=== PATIENT | female | born 1955 | race American Indian/Alaskan Native ===

== ENCOUNTER 2016-05-17 07:17 | Outpatient (CLI) | payer BC ==
--- NOTE | 2016-05-17 10:29 | Cat Scan Report ---
CT abdomen and pelvis without contrast: Transverse images are obtained from the lower chest to the ischium with coronal and sagittal 2-D reformatted images. Comparison is made to a palpable study in October 2015. The patient has a fusiform infrarenal abdominal aorta extending to the bifurcation. There is some scattered mural calcifications. The maximum diameter is measured at 4.68 cm. This is within technical variation of the diameter measured on the prior exam as being the same diameter. The findings otherwise appear generally unremarkable and unchanged from the prior examination. Impression: Stable infrarenal abdominal aorta. No evidence of rupture.
== END 2016-05-17 07:18 | disposition home or self-care (01) ==
LOC: CT 07:17
PROVIDERS: ATTEND Surgery Vascular Surgery
DX: I71.9 Aortic aneurysm of unspecified site, without rupture (principal); I70.0 Atherosclerosis of aorta
CPT/HCPCS: 74176

== ENCOUNTER 2017-02-06 08:46 | Outpatient (CLI) | payer BC ==
[2017-02-06 09:57] LABS: Blood Urea Nitrogen 8 mg/dL (7-17)
--- NOTE | 2017-02-06 11:13 | Cat Scan Report ---
CT CHEST WITH AND WITHOUT CONTRAST: HISTORY: Cough, tobacco abuse, weight loss. COMPARISON: none. TECHNIQUE: Helical CT in 1.25mm intervals before and after IV contrast. Sagittal and coronal reformatted images. FINDINGS: Thyroid gland: Normal. Tracheobronchial tree: Normal. Esophagus: Normal. Heart: Mild to moderate cardiomegaly is evident. Pericardium: Normal. Mediastinum: The aorta is mildly ectatic but normal caliber. No dissection or focal aneurysm. No mediastinal mass or adenopathy. Lung [place]: Moderate to severe centrilobular emphysematous changes are identified throughout both lungs. No evidence for nodule, mass, infiltrate or pleural effusion. No pneumothorax. Pleural Spaces: Normal. Musculoskeletal: Mild thoracic spondylosis. No fracture or bony lesion identified. IMPRESSION: Emphysema Cardiomegaly Ectatic aorta No suspicious mass or adenopathy identified in the chest.
--- NOTE | 2017-02-06 16:11 | Mammography Report ---
BILATERAL DIGITAL SCREENING MAMMOGRAM with CAD: 02/06/17 08:46:00 CLINICAL: Routine screening. COMPARISON:12/30/14 FINDINGS: The breasts are heterogeneously dense, which may obscure small masses. No mass, architectural distortion or suspicious calcifications. IMPRESSION: No mammographic evidence of malignancy. BI-RADS CATEGORY: 1 - - Negative RECOMMENDATION: Routine mammographic screening in one year. COMMENT: Patient follow-up letters are generated by our [employer] application.
== END 2017-02-06 08:47 | disposition home or self-care (01) ==
LOC: MAMMO 08:46
PROVIDERS: ATTEND Hospitalist
DX: Z12.31 Encounter for screening mammogram for malignant neoplasm of breast (principal); I51.7 Cardiomegaly; J43.9 Emphysema, unspecified; I77.819 Aortic ectasia, unspecified site; R63.4 Abnormal weight loss; M47.894 Other spondylosis, thoracic region; Z72.0 Tobacco use
CPT/HCPCS: 36415; 71270; 82565; 84520; G0202; Q9967; 77067

== ENCOUNTER 2018-03-05 19:06 | Emergency (ER) | payer BC ==
[2018-03-05 20:15] LABS: Alanine Aminotransferase 8 units/L (7-56); Albumin 3.8 g/dL (3.9-5); BUN/Creatinine Ratio 9; Blood Urea Nitrogen 6 mg/dL (7-17); Calcium 9.1 mg/dL (8.4-10.2); Hemolysis Index 1
[2018-03-05 20:19] LABS: Basophils % (Auto) 0.4 % (0.0-1.8); Eosinophils # (Auto) 0.1 K/mm3 (0.0-0.4); Eosinophils % (Auto) 1.1 % (0.0-4.3); Hematocrit 36.5 % (30.3-42.9); Lymphocytes % (Auto) 30.9 % (13.4-35.0); Mean Corpuscular HGB Conc 33 % (30-34); Mean Corpuscular Volume 84 fl (79-97); Monocytes # (Auto) 0.5 K/mm3 (0.0-0.8); Monocytes % (Auto) 8.3 % (0.0-7.3); Platelet Count 331 K/mm3 (140-440); Red Blood Count 4.32 M/mm3 (3.65-5.03); Red Cell Distribution Width 14.7 % (13.2-15.2)
--- NOTE | 2018-03-05 20:37 | Emergency Department Report ---
HPI - General Chief Complaint: Abdominal Pain Time Seen by Provider: 03/05/18 19:32 - HPI HPI: 62-year-old -[place] female presents to ED with abdominal pain, flank pain, radiating to legs. Symptoms have been constant since this morning. Patient rates pain as mild in severity. On February 26 patient had aortic procedure. Patient denies any fever, chills or night sweats. No mild constipation symptoms. Has been on opiates since procedure. No alleviating or exacerbating factors. ED Past Medical Hx - Past Medical History Previous Medical History?: Yes Hx Hypertension: Yes (x 15 yrs) - Surgical History Past Surgical History?: Yes Additional Surgical History: hysterectomy 2003. aortic procedure, "placed a graft"-02/26/2018 - Social History Smoking Status: Current Every Day Smoker Substance Use Type: None - Medications Home Medications: Home Medications Medication Instructions Recorded Confirmed Last Taken Type Losartan Potassium [Cozaar] 100 mg PO DAILY 02/25/18 02/25/18 02/25/18 09:00 History Temazepam 7.5 mg PO HS 02/25/18 02/25/18 02/25/18 History Clopidogrel Bisulfate [Plavix] 75 mg PO QDAY #30 tablet 02/27/18 Unknown Rx HYDROcodone/APAP 10-325 [Sidney 1 each PO Q6HR PRN #25 tablet 02/27/18 Unknown Rx 10/325] ED Review of Systems ROS: Stated complaint: (L) SIDE PAIN Other details as noted in HPI Comment: All other systems reviewed and negative Gastrointestinal: abdominal pain. denies: nausea Genitourinary: denies: urgency Musculoskeletal: denies: back pain Physical Exam - Physical Exam Vital Signs: Vital Signs 03/05/18 19:13 Temperature 98.4 F Pulse Rate 97 H Respiratory 18 Rate Blood Pressure 148/82 O2 Sat by Pulse 95 Oximetry Physical Exam: - General Limitations: No Limitations General appearance: alert, in no apparent distress - Head Head exam: Present: atraumatic, normocephalic - Eye Eye exam: Present: normal appearance - ENT ENT exam: Present: mucous membranes moist - Neck Neck exam: Present: normal inspection - Respiratory Respiratory exam: Present: normal lung sounds bilaterally. Absent: respiratory distress - Cardiovascular Cardiovascular Exam: Present: regular rate, normal rhythm. Absent: systolic murmur, diastolic murmur, rubs, gallop - GI/Abdominal GI/Abdominal exam: Present: soft, normal bowel sounds - Extremities Exam Extremities exam: Present: normal inspection - Back Exam Back exam: Present: normal inspection - Neurological Exam Neurological exam: Present: alert, oriented X3 - Psychiatric Psychiatric exam: Present: normal affect, normal mood - Skin Skin exam: Present: warm, dry, intact, normal color. Absent: rash ED Course Vital Signs 03/05/18 19:13 Temperature 98.4 F Pulse Rate 97 H Respiratory 18 Rate Blood Pressure 148/82 O2 Sat by Pulse 95 Oximetry ED Medical Decision Making - Lab Data Result diagrams: 03/05/18 19:41 03/05/18 19:41 Critical care attestation.: If time is entered above; I have spent that time in minutes in the direct care of this critically ill patient, excluding procedure time. ED Disposition Clinical Impression: Postoperative pain Constipation Qualifiers: Constipation type: other constipation type Qualified Code(s): K59.09 - Other constipation Disposition: DC-01 TO HOME OR SELFCARE Is pt being admited?: No Does the pt Need Aspirin: No Condition: Stable Instructions: Constipation (ED), High Fiber Diet (ED), Abdominal Pain (ED) Referrals: PRIMARY CARE, [Referring] - 3-5 Days
[2018-03-05 20:44] VITALS: BP 144/86
--- NOTE | 2018-03-05 21:16 | Event Note ---
Date: 03/05/18 Patient called at about 6 PM today and stated that she had had abdominal pain "all day." Pain was described as occasionally sharp pains on the left flank, some pain in the left leg, and then some progression of the pain over to the right flank. Patient stated that she had been urinating and having bowel movements regularly. She denied any nausea or vomiting. She denied any sudden weakness or shortness of breath. After discussion, I recommended that she come to the emergency room for further evaluation. In the emergency room, she complains of abdominal pain similar to what she described above. She states she actually feels pretty well and wants to go home. On physical exam, she is in no acute distress. Her abdomen is soft and non tender. There is a general fullness to the abdomen. Femoral pulses are 2+ bilaterally. Dorsalis pedis pulses are 2+ bilaterally. There are no obvious hematomas at the surgical incision sites. CT scan of the abdomen and arterial runoff shows that the aortic aneurysm repair is intact with no evidence of extravasation. There is no evidence of pseudoaneurysm formation in the groins. There is excellent arterial runoff to both lower extremities. Patient is noted to have a large amount of fecal material in the colon. During the CT scan, there was a small amount of extravasation of contrast and saline in the upper arm. Overall, it appears that the patient does not have any acute pathology related to her aneurysm repair. She has been taking narcotic medication for occasional pain and appears to become substantially constipated. On further interview, she stated that she's been having mostly small bowel movements over the last several days. Again, she reiterated that she felt well enough to go home. Her vital signs at been stable during her time in the emergency room. The extravasation site on her right arm is soft without evidence of compromise of the skin. I discussed the situation with both the patient and the emergency room physician. I recommend that she take a laxative such as magnesium citrate to precipitate an adequate bowel movement. I recommend that she not take any more narcotic medication. Extravasation site should be treated with warm compresses as necessary. She should return to our office as scheduled for follow-up. If she has any further acute issues she may need to return to the emergency room.
[2018-03-05] MEDS ORDERED: CITRATE OF MAGNESIA PO ONE (21:34)
[2018-03-05] MEDS ORDERED: ULTRAM PO ONE (21:35)
--- NOTE | 2018-03-05 22:12 | Cat Scan Report ---
FINAL REPORT EXAM: CT ANGIO ABD/FEMORAL ABD AORTA HISTORY: abd pain s/p abd aortic graft TECHNIQUE: CT angiogram abdomen with lower extremity runoff. Study performed with intravenous contra st. Multiplanar and maximum intensity projection 3D reconstructions obtained PRIORS: None. FINDINGS: Proximal abdominal aorta measures 2.4 x 2.5 centimeters. At the level of the infrarenal abdominal aor ta there is an aortoiliac stent. Infrarenal fusiform abdominal aortic aneurysm measuring 5.4 by 5.6 c entimeters. The stent appears patent without evidence for contrast extravasation or endoleak. Renal arteries are patent bilaterally. Celiac axis and SMA are patent no significant stenosis. Common and external iliac arteries demonstrate no evidence for occlusion there are some mild atherosc lerotic plaques noted. The common femoral arteries are patent bilaterally there is some mild plaque without evidence for sig nificant stenosis. The superficial femoral arteries and major arteries of the calf are patent bilaterally with flow seen distally. Liver spleen and pancreas are grossly unremarkable. No acute intra-abdominal pathology identified. IMPRESSION: Abdominal aortic aneurysm with endovascular stent. No evidence for major vascular occlusion or stenos is. No evidence for contrast extravasation or leak.
== END 2018-03-05 22:31 | disposition home or self-care (01) ==
LOC: ED 19:06
DX: G89.18 Other acute postprocedural pain (principal); K59.09 Other constipation; I10 Essential (primary) hypertension; F17.200 Nicotine dependence, unspecified, uncomplicated; Z90.710 Acquired absence of both cervix and uterus
CPT/HCPCS: 36415; 75635; 80053; 85025; 99284; Q9967

== ENCOUNTER 2018-05-21 08:47 | Outpatient (CLI) | payer BC ==
[2018-05-21 09:54] LABS: Blood Urea Nitrogen 8 mg/dL (7-17)
--- NOTE | 2018-05-21 12:22 | Cat Scan Report ---
CT ANGIOGRAM ABDOMEN AND PELVIS History: Tobacco use, aortic aneurysm, hypertension, venous insufficiency. Technique: Helical CT was performed following IV contrast. Sagittal and coronal reformatted images. Rotational MIP images. Comparison: 03/05/18. 01/12/18. Findings: An aortobiiliac stent is in position. There is no evidence for stent migration or endoleak. Fusiform dilatation of the distal aorta which extends to the bifurcation measures a maximum of 5.4 cm in diameter. There are mild calcified plaques in the bilateral iliac systems. There is no evidence for stenosis or dissection. The celiac axis, SMA and bilateral single renal arteries are widely patent with less than 20% stenosis. The origin of the CARLOS is occluded. Mild cardiomegaly is noted at the lung bases. The liver is mildly enlarged with diffuse fatty infiltration. The biliary system is unremarkable. There are 2 cysts in the body of the pancreas measuring up to 2 cm which probably represent small pseudocysts which are unchanged. The kidneys are normal size and position. No obvious renal lesion or obstruction. The bladder is unremarkable. The bowel loops are within normal limits given no oral contrast was administered. Hysterectomy changes are suspected. IMPRESSION: Infrarenal AAA containing a stent and measuring a maximum of 5.4 cm in diameter. No evidence for endoleak. Mild cardiomegaly. Mild hepatomegaly with diffuse fatty infiltration.
== END 2018-05-21 08:48 | disposition home or self-care (01) ==
LOC: CT 08:47
PROVIDERS: ATTEND Surgery Vascular Surgery
DX: K76.0 Fatty (change of) liver, not elsewhere classified (principal); I71.4 Abdominal aortic aneurysm, without rupture; I11.9 Hypertensive heart disease without heart failure; I87.2 Venous insufficiency (chronic) (peripheral); Z72.0 Tobacco use
CPT/HCPCS: 36415; 74174; 82565; 84520; Q9967

== ENCOUNTER 2021-04-06 08:44 | Outpatient (CLI) | payer MEDICARE ==
--- NOTE | 2021-04-06 10:51 | Fluoroscopy Report ---
BARIUM SWALLOW Indication: R19.8 J04.4. Dysphagia Technique: Single and double contrast barium technique utilized to evaluate the esophagus. FINDINGS: To begin the exam, swallowing was evaluated in the lateral position under direct fluorosco py. Swallowing was normal. No mucosal irregularity, mass, mass effect, or critical stenosis. There were no abnormal tertiary c ontractions as seen with dysmotility. No gastroesophageal reflux. The patient was able to ingest and pass a barium tablet without difficulty. IMPRESSION: No significant abnormality is identified. Fluoroscopic time: 1.8 minutes Number of fluoroscopic images: 44 Signer Name: Remi Lopez Jr, MD Signed: 04/06/2021 10:47 AM Workstation Name: [id number]
== END 2021-04-06 08:45 | disposition home or self-care (01) ==
LOC: FLUORO 08:44
PROVIDERS: ATTEND Chiropractor
DX: R19.8 Other specified symptoms and signs involving the digestive system and abdomen (principal); J04.0 Acute laryngitis; R91.8 Other nonspecific abnormal finding of lung field
CPT/HCPCS: 74220